=== PATIENT | male | born 1980 | race Caucasian/White ===

== ENCOUNTER 2023-11-23 21:27 | Inpatient (IN) | payer OTHER, SELFPAY ==
[2023-11-23 21:37] VITALS: BMI 33.4
[2023-11-23 21:56] VITALS: BP 146/92; PULSE 89; RESP 18; TEMP 36.6; O2SAT 95
[2023-11-23 22:02] LABS: Basophils # 0.1 10^3/uL (0.0-0.1); Basophils % 0.4 %; Eosinophils # 0.4 10^3/uL (0.0-0.8); Eosinophils % 2.9 %; Hematocrit 46.9 % (37-53); Lymphocytes % 28.7 %; Mean Corpuscular HGB Conc 32.6 g/dL (30-55); Mean Corpuscular Volume 88.8 fl (82-101); Mean Platelet Volume 10.4 fL (7.4-10.4); Monocytes # 1.2 10^3/uL (0.2-0.9); Monocytes % 8.6 %; Neutrophils # 8.28 10^3/uL (1.8-7.7); Nucleated Red Blood Cells % 0 %; Platelet Count 279 10^3/cmm (157-399); Red Blood Count 5.28 10^6/uL (3.85-5.65); Red Cell Distribution Width 13.2 % (12.1-15.1)
[2023-11-23 22:03] LABS: Bilirubin Urine Negative (Negative); Blood Urine Negative (Negative); Glucose Urine UA Negative (Normal); Ketones Urine Trace (Negative); Leukocyte Esterase Urine Negative (Negative); Nitrate Urine Negative (Negative); Protein Urine Negative (Negative); Specific Gravity, Urine 1.013 (1.005-1.030); Urine Appearance Clear (CLEAR); Urine Color Yellow (Yellow); pH Urine 5.5 (5-7)
[2023-11-23 22:08] LABS: Add Urine Microscopic? YES; Bacteria Urine None Seen /hpf; Hyaline Casts Urine 4.95 /lpf; RBC Urine 0-2 /hpf (0-2); Squamous Epithelial Cell Urine 0-5 /hpf (0-5); WBC Urine 0-5 /hpf (0-5)
[2023-11-23 22:11] LABS: Amphetamines Screen Urine Negative (Negative); Barbiturates Screen Urine Negative (Negative); Benzodiazepines Screen Urine Negative (Negative); Cocaine Screen Urine Negative (Negative); Opiate Screen Urine Negative (Negative); PCP Screen Urine Negative (Negative); THC Screen Urine Positive (Negative)
--- NOTE | 2023-11-23 22:18 | PC.NURSE ---
Report called to Dolores DICKEY. All questions/concerns addressed at this time.
[2023-11-23 22:39] LABS: Alanine Aminotransferase 59 U/L (0-41); Albumin Level 4.4 g/dL (3.5-5.2); Alkaline Phosphatase 115 U/L (40-130); Aspartate Amino Transferase 41 U/L (0-40); Blood Urea Nitrogen 8 mg/dL (6-20); Calcium 9.2 mg/dL (8.5-10.5); Carbon Dioxide 22 mmol/L (22-29); Chloride 103 mmol/L (98-107); Creatinine Clr Calc Pharmacy 154.2019; Globulin 3.7 g/dL (1.3-4.6); Glomerular Filtration Rate 122.5 mL/min (90-130); Glucose 138 mg/dL (65-115); Osmolality Calculated 285 mOsm/kg (285-295); Sodium 137 mmol/L (136-145); Thyroid Stimulating Hormone 2.98 uIU/mL (0.27-4.20); Total Bilirubin 1.1 mg/dL (0.15-1.2); Total Protein 8.1 g/dL (6.6-8.7)
--- NOTE | 2023-11-23 22:49 | ED.C_ITS ---
HPI - Psych 2 General: Chief Complaint: Psychiatric Symptoms Stated Complaint: SI Time Seen by Provider: 11/23/23 21:28 History of Present Illness: 43-year-old male brought into the emerge ncy department in 's custody. Patient explains that he was feeling suicidal tonight. He made a comment to his aunt. His aunt then got in contact with the patient's cousin. The patient's cousin is very good friends with the patient. Cousin called him and was talking to him trying to keep him safe. Patient reports he was feeling pretty committed to hurting himself but did not have a specific plan. He says he was going to figure something out. Patient was on the phone talking to his cousin. The patient's phone cut out [place] The cousin thought that he had hung up or else had hurt himself. The cousin called the agent ticketing gate. The agent ticketing gate came and found the patient. The patient admitted that he was having suicidal thoughts. On arrival, the patient says that he has a lot of stressors. He frequently has suicidal thoughts. He reports currently he is not feeling suicidal but admits that he was pretty committed to it tonight. Patient reports he does not like taking medications. He has suffered with anxiety and depression but does not have any other diagnoses. He uses marijuana but no other substances. He reports he has chronically elevated blood pressure but is not on any therapy for it. did fill out an affidavit Review of Systems 2 General: Reports: 10 or more systems reviewed and unremarkable except in HPI and below Physical Exam 2 Const: COMMON NORMALS: no limitations, alert and well nourished EXAM LIMITATIONS: no altered mental status HENMT: COMMON NORMALS: normocephalic, atraumatic and external ears normal H EAD & SCALP: normocephalic and atraumatic EXTERNAL EAR: Yes external ears normal MOUTH: no muffled voice Eye: COMMON NORMALS: EOMs intact bilaterally, conjunctivae normal and no scleral icterus CONJUNCTIVA: Yes conjunctivae normal Neck/C-Spine: COMMON NORMALS: no JVD GENERAL: Yes normal visual inspection and Yes trachea midline Resp: COMMON NORMALS: normal respiratory effort, No use of accessory muscles and clear to auscultation bilaterally AUSCULTATION: clear to auscultation bilaterally Cardio: COMMON NORMALS: no JVD, regular rate and regular rhythm RATE: r egular rate RHYTHM: regular rhythm GI: COMMON NORMALS: Soft to palpation and non-tender PALPATION: Yes Soft to palpation and No Guarding due to palpation present (GI) Extremity: COMMON NORMALS: normal to inspection Neuro: COMMON NORMALS: moves all extremities, no focal motor deficits and no sensory deficits noted SENSORIUM/ORIENTATION: Yes alert SPEECH: speech normal Psych: COMMON NORMALS: mental status grossly normal, Normal thought process present, cooperative, normal affect and speech normal APPEARANCE: Yes grossly normal ATTITUDE: Yes calm and Yes engaged ACTIVITY/MOTOR BEHAVIOR: Yes appropriate eye contact SPEECH: Yes normal speech MOOD & AFFECT: Yes euthymic mood THOUGHT PROCESS: Normal thought process present THOUGHT CONTENT: Yes Suicidality present (Reports he was having suicidal thoughts earlier. Denies current) and No Homicidality present A TTENTION/CONCENTRATION: Yes attention grossly intact INSIGHT: Good insight present (Psych) Skin: COMMON NORMALS: no rashes or lesions noted, turgor normal and no jaundice GENERAL SKIN EXAM: no rashes or lesions noted and turgor normal Course 2 Vital Signs: Vital signs: Vital Signs Temperature 98 F 11/23/23 21:56 Pulse Rate 89 11/23/23 21:56 Respiratory Rate 18 11/23/23 21:56 Blood Pressure 146/92 11/23/23 21:56 Pulse Oximetry 95 11/23/23 21:56 [facility] - Psych Medical Decision Making Patient presents with suicidal ideation. Patient has never had a formal psychiatric evaluation. We do have an affidavit stating he was suicidal. He is denying current suicidal ideation but endorses lots of stressors. He also reports that his mind is overactive. I think it would be best that the patient have an evaluation by psychiatry and be removed from his stressors and monitored. I discussed with Dr. Burt. Dr. Burt is willing to see the patient. The adult psychiatric unit is full tonight. They should have some discharges tomorrow if he still needs admission. Patient is currently on a hold for his suicidality pending formal evaluation by the psychiatrist. Patient is medically cleared. Only concerning finding was elevated white blood cell count. Dr. Burt reports patient will be boarding in the ER tonight. They are expecting discharges from the adult psychiatric unit tomorrow morning. Lab Data 11/23/23 21:57 11/23/23 21:57 Laboratory Results WBC 14.00 10^3/uL (3.29-11.43) H 11/23/23 21:57 RBC 5.28 10^6/uL (3.85-5.65) 11/23/23 21:57 Hgb 15.30 g/dL (11.27-16.99) 11/23/23 21:57 Hct 46.9 % (37-53) 11/23/23 21:57 MCV 88.8 fl (82-101) 11/23/23 21:57 MCH 29.0 pg (27-33) 11/23/23 21:57 MCHC 32.6 g/dL (30-55) 11/23/23 21:57 RDW 13.2 % (12.1-15.1) 11/23/23 21:57 Plt Count 279 10^3/cmm (157-399) 11/23/23 21:57 MPV 10.4 fL (7.4-10.4) 11/23/23 21:57 Neut % (Auto) 59.0 % 11/23/23 21:57 Lymph % (Auto) 28.7 % 11/23/23 21:57 Dickson % (Auto) 8.6 % 11/23/23 21:57 Eos % (Auto) 2.9 % 11/23/23 21:57 Baso % (Auto) 0.4 % 11/23/23 21:57 Neut # (Auto) 8.28 10^3/uL (1.8-7.7) H 11/23/23 21:57 Lymph # (Auto) 4.0 10^3/uL (0.8-4.8) 11/23/23 21:57 Dickson # (Auto) 1.2 10^3/uL (0.2-0.9) H 11/23/23 21:57 Eos # (Auto) 0.4 10^3/uL (0.0-0.8) 11/23/23 21:57 Baso # (Auto) 0.1 10^3/uL (0.0-0.1) 11/23/23 21:57 Nucleated RBC % (auto) 0 % 11/23/23 21:57 Nucleated RBCs # 0.0 /100WBC 11/23/23 21:57 Sodium 137 mmol/L (136-145) 11/23/23 21:57 Chloride 103 mmol/L (98-107) 11/23/23 21:57 Carbon Dioxide 22 mmol/L (22-29) 11/23/23 21:57 BUN 8 mg/dL (6-20) 11/23/23 21:57 Creatinine 0.7 mg/dL (0.7-1.2) 11/23/23 21:57 GFR Calculation 122.5 mL/min (90-130) 11/23/23 21:57 Calculated Osmolality 285 mOsm/kg (285-295) 11/23/23 21:57 Calcium 9.2 mg/dL (8.5-10.5) 11/23/23 21:57 Total Bilirubin 1.1 mg/dL (0.15-1.2) 11/23/23 21:57 Alkaline Phosphatase 115 U/L (40-130) 11/23/23 21:57 Total Protein 8.1 g/dL (6.6-8.7) 11/23/23 21:57 Albumin 4.4 g/dL (3.5-5.2) 11/23/23 21:57 Globulin 3.7 g/dL (1.3-4.6) 11/23/23 21:57 TSH 2.98 uIU/mL (0.27-4.20) 11/23/23 21:57 Urine Color Yellow (Yellow) 11/23/23 21:04 Urine Appearance Clear (CLEAR) 11/23/23 21:04 Urine pH 5.5 (5-7) 11/23/23 21:04 Ur Specific [place] 1.013 (1.005-1.030) 11/23/23 21:04 Urine Protein Negative (Negative) 11/23/23 21:04 Urine Glucose (UA) Negative (Normal) 11/23/23 21:04 Urine Ketones Trace (Negative) 11/23/23 21:04 Urine Blood Negative (Negative) 11/23/23 21:04 Urine Nitrate Negative (Negative) 11/23/23 21:04 Urine Bilirubin Negative (Negative) 11/23/23 21:04 Urine Urobilinogen 1.0 mg/dL (Negative) 11/23/23 21:04 Ur Leukocyte Esterase Negative (Negative) 11/23/23 21:04 Urine RBC 0-2 /hpf (0-2) 11/23/23 21:04 Urine WBC 0-5 /hpf (0-5) 11/23/23 21:04 Ur Squamous Epith Cells 0-5 /hpf (0-5) 11/23/23 21:04 Amorphous Sediment Not Reportable 11/23/23 21:04 Urine Bacteria None seen /hpf (NONE) 11/23/23 21:04 Hyaline Casts 4.95 /lpf 11/23/23 21:04 Urine Opiates Screen Negative ng/mL (Negative) 11/23/23 21:04 Ur Barbiturates Screen Negative ng/mL (Negative) 11/23/23 21:04 Ur Phencyclidine Scrn Negative ng/mL (Negative) 11/23/23 21:04 Ur Amphetamines Screen Negative ng/mL (Negative) 11/23/23 21:04 U Benzodiazepines Scrn Negative ng/mL (Negative) 11/23/23 21:04 Urine Cocaine Screen Negative ng/mL (Negative) 11/23/23 21:04 U Marijuana (THC) Screen Positive ng/mL (Negative) H 11/23/23 21:04 No radiology studies performed this visit Discharge Plan Discharge Patient Disposition: Placed in Observation Clinical Impression: Suicidal ideation Condition: Stable Referrals: Vaughn Larry MD [Primary Care Provider] - Coding Level of Care Code ED Time Analysis Clerk for Rashid Casarez
[2023-11-23 22:51] LABS: Acetaminophen < 5.0 ug/mL (10-30); Alcohol Level < 10 mg/dL (0-10); Anion Gap 15.7 (5-19); Potassium 3.7 mmol/L (3.5-5.1); Salicylate < 0.3 mg/dL (3-10)
--- NOTE | 2023-11-23 23:15 | PC.NURSE ---
96 Hour Involuntary Hold Patient Rights have been read to the patient and a copy of the same has been given to him. Plaster Applicator Kristine Lynne was present at bedside at time of presentation of Rights.
[2023-11-23] MEDS: CLONazepam 0.5 mg Tablet 1 MG PO (23:18)
[2023-11-23] MEDS: hyDROXYzine 25 mg Capsule 50 MG PO (23:19)
--- NOTE | 2023-11-23 23:48 | PC.NURSE ---
sandwich and water given.
--- NOTE | 2023-11-24 07:56 | PC.NURSE ---
this nurse assumed care at approx 0730
[2023-11-24 09:00] VITALS: BP 156/86; PULSE 73; TEMP 36.6; O2SAT 98
--- NOTE | 2023-11-24 11:31 | PC.NURSE ---
this nurse rounded on pt, assessed pt needs; pt states wanting cigarette and to leave campus to smoke. this nurse educated no-smoking policy and 96-hour hold policy, this nurse offered nicotine gum or patch. pt declined twice, states I guess I will just stay here and be your prisoner.
[2023-11-24 12:36] VITALS: BP 142/99; PULSE 83; RESP 17; TEMP 36.4; O2SAT 95
[2023-11-24 14:00] VITALS: BP 137/80; PULSE 82; RESP 18; TEMP 36.3; O2SAT 97
[2023-11-24 20:14] VITALS: BP 115/95; PULSE 101; RESP 18; TEMP 36.7; O2SAT 97
[2023-11-25 06:00] VITALS: BP 150/97; PULSE 83; RESP 18; TEMP 36.6; O2SAT 97
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
[2023-11-25] MEDS: atenolol 50 mg Tablet 25 MG PO (09:05)
[2023-11-25 14:00] VITALS: BP 159/90; PULSE 67; RESP 17; TEMP 36.4; O2SAT 96
[2023-11-25] MEDS: trazodone 50 mg Tablet PO (20:30)
[2023-11-25 21:12] VITALS: BP 179/98; PULSE 88; RESP 18; TEMP 36.7; O2SAT 96
[2023-11-26 06:00] VITALS: BP 158/102; PULSE 74; RESP 18; TEMP 36.4; O2SAT 98
[2023-11-26] MEDS: atenolol 50 mg Tablet 25 MG PO (09:57)
[2023-11-26 14:00] VITALS: BP 152/88; PULSE 65; RESP 16; TEMP 36.6; O2SAT 98
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
[2023-11-26 15:15] VITALS: BP 158/102; PULSE 74; RESP 18; TEMP 36.4; O2SAT 98
== END 2023-11-26 15:53 | disposition home or self-care (01) | DRG 882 ==
LOC: ER 22:54 → NP 11-24 12:22
PROVIDERS: Admitting Provider Psychiatry & Neurology Psychiatry; Emergency Provider Emergency Medicine; PCP Family Medicine; Visit Provider Psychiatry & Neurology Psychiatry
DX: F43.25 Adjustment disorder with mixed disturbance of emotions and conduct (principal); R45.851 Suicidal ideations; Z63.0 Problems in relationship with spouse or partner; E66.9 Obesity, unspecified; F17.200 Nicotine dependence, unspecified, uncomplicated; Z62.810 Personal history of physical and sexual abuse in childhood; Z68.32 Body mass index [BMI] 32.0-32.9, adult
CPT/HCPCS: 36415; 80053; 80306; 80307; 81001; 84443; 85025; 97150; 97165; 99285